=== PATIENT | male | born 1995 | race Caucasian/White ===

== ENCOUNTER 2019-05-16 14:16 | Emergency (ER) | payer SELFPAY ==
[~2019-05-16] VITALS: Ht 182.9 cm; Wt 122.7 kg
[2019-05-16 14:31] VITALS: BP 119/62
--- NOTE | 2019-05-16 15:06 | NUR ---
Patient ambulated to bed 1. RN evaluating patient at bedside.
--- NOTE | 2019-05-16 15:13 | NUR ---
23M BIB SELF W/ C/O RT EYE IRRITATION/DISCOMFORT ASSOCIATED WITH ITCHINESS AND SWELLING SINCE TUESDAY. DENIES PAIN OR KNOWN INJURY. UNLOADS TRUCKS AT WORK, NOT SURE IF SOMETHING MAY HAVE GOTTEN INTO EYE. RT EYE INJECTED WITH MILD SWELLING. TX AT HOME WITH "EYE DROPS FOR PINK EYE" AND EYE COMPRESS TO NO RELIEF.
[2019-05-16 16:10] VITALS: BP 119/62
--- NOTE | 2019-05-16 16:10 | NUR ---
Patient discharged with v/s stable. Written and verbal after care instructions given and explained. Patient alert, oriented and verbalized understanding of instructions. Ambulatory with steady gait. All questions addressed prior to discharge. ID band removed. Patient advised to follow up with PMD. Rx of ERYTHROMYCIN OINTMENT given. Patient educated on indication of medication including possible reaction and side effects. Opportunity to ask questions provided and answered.
== END 2019-05-16 16:10 | disposition home or self-care (01) ==
LOC: MED 14:16
DX: H10.89 Other conjunctivitis (principal)
CPT/HCPCS: 99283

== ENCOUNTER 2021-06-20 12:27 | Emergency (ER) | payer BC ==
[~2021-06-20] VITALS: Ht 182.9 cm; Wt 90.7 kg
[2021-06-20 12:38] VITALS: BP 158/108
--- NOTE | 2021-06-20 12:49 | NUR ---
25 Y/O MALE BIB SELF WITH C/O RIGHT HAND PAIN S/P BOXING. 7/10 PRESSURE LIKE PAIN. RIGHT MIDDLE KNUCKLE NOTED WITH 1CM CLOSED SCABBED OVER LACERATION. DENIES CP. DENIES N/V/D. NO COUGH AT THIS TIME. PMHX: DENIES ALLERGIES: DENIES hOME MEDS: DENIES
--- NOTE | 2021-06-20 12:56 | NUR ---
RADIOLOGY AT BEDSIDE TAKING RIGHT HAND XRAYS
[2021-06-20] MEDS ORDERED: cefTRIAXone 1,000 MG in LIDOCAINE MPF 1% 2.1 ML IM ONE (13:30)
[2021-06-20] MEDS ORDERED: CEPH-588 PO (13:32)
[2021-06-20] MEDS ORDERED: IBUP-2213 PO (13:32)
[2021-06-20] MEDS ORDERED: cefTRIAXone 1,000 MG VIAL ONE (13:37)
[2021-06-20] MEDS ORDERED: LIDOCAINE MPF 1% 5 ML ONE (13:38)
[2021-06-20 13:52] VITALS: BP 115/75
== END 2021-06-20 13:55 | disposition home or self-care (01) ==
LOC: MED 12:27
DX: L03.113 Cellulitis of right upper limb (principal); Z79.899 Other long term (current) drug therapy
CPT/HCPCS: 73130; 96372; 99283; J0696; J2001; Q0092

== ENCOUNTER 2021-10-09 04:04 | Emergency (ER) | payer BC ==
[~2021-10-09] VITALS: Ht 182.9 cm; Wt 136.1 kg
[~2021-10-09 04:04] MED LIST: CEPH-588 PO; IBUP-2213 PO
[2021-10-09 04:05] VITALS: BP 155/92
[2021-10-09 04:19] VITALS: BP 155/92
--- NOTE | 2021-10-09 04:20 | NUR ---
PATIENT [facility] [employer]. PATIENT EXAMINED BY DR. STEPHENS. PATIENT MEDICALLY CLEARED AND RELEASED IN CUSTODY IN STABLE CONDITION. ORIGINAL PRE-BOOK FORM GIVEN TO OFFICER HARSHAD.
== END 2021-10-09 04:17 ==
LOC: MED 04:04
DX: Z04.1 Encounter for examination and observation following transport accident (principal); Z02.89 Encounter for other administrative examinations; V98.8XXA Other specified transport accidents, initial encounter; Y93.89 Activity, other specified; Y92.89 Other specified places as the place of occurrence of the external cause; Y99.8 Other external cause status
CPT/HCPCS: 99283